=== PATIENT | female | born 1980 | race Caucasian/White ===

== ENCOUNTER 2017-12-09 15:58 | Emergency (ER) | payer MEDICAID ==
[~2017-12-09] VITALS: Ht 175.3 cm; Wt 105.0 kg
[2017-12-09 16:14] VITALS: BP 134/86; PULSE 83; RESP 19; TEMP 98; O2SAT 99
[2017-12-09] MEDS ORDERED: SODIUM CHLOR 0.9% 1000 ML INJ 1,000 ML IV ONE (16:17)
[2017-12-09] MEDS ORDERED: GABA600T PO (16:19)
[2017-12-09] MEDS ORDERED: MELO15TA20 PO (16:19)
[2017-12-09] MEDS ORDERED: CYCL5TAB PO (16:19)
--- NOTE | 2017-12-09 16:26 | PD ---
HPI Chief Complaint: Anxiety Time Seen by Provider: 16:12 Travel History International Travel<30 days: No Contact w/Intl Traveler<30days: No Traveled to known affect area: No History of Present Illness HPI Patient is a 37-year-old female who comes in after an anxiety attack. She says that she has had anxiety attacks in the past, and they felt similar. She says she got stuck in an elevator today and that triggered it. She says that when the elevator doors open she did pass out and fall forward. She does say this is happened in the past as well. Currently she complains of some pressure to the back of her head and neck. She says that she has had this as well after an anxiety attack. He says she was feeling fine prior to getting stuck in the elevator. She denies chest pain, but was feeling short of breath during the anxiety attack, but this is improved now. Severity is mild to moderate. PFSH Past Medical History ?: Not Social History Tobacco Use: No Allergies-Medications (Allergen,Severity, Reaction): Coded Allergies: Penicillins (Verified Allergy, Severe, 12/09/17) azithromycin (Verified Allergy, Severe, 12/09/17) sulfamethoxazole (Verified Allergy, Severe, 12/09/17) trimethoprim (Verified Allergy, Severe, 12/09/17) amoxicillin (Verified Allergy, Intermediate, Hives, 12/09/17) Reported Meds & Prescriptions Reported Meds & Active Scripts Active Reported Flexeril (Cyclobenzaprine HCl) 5 Mg Tab 5 Mg PO TID Meloxicam 15 Mg Tab 15 Mg PO DAILY Gabapentin 600 Mg Tab 600 Mg PO TID Review of Systems Except as stated in HPI: all other systems reviewed are Neg General / Constitutional: No: Fever, Chills HENT: Positive: Headaches Cardiovascular: No: Chest Pain or Discomfort Gastrointestinal: No: Nausea, Vomiting Musculoskeletal: Positive: Pain Neurologic: Positive: Syncope, No: Weakness Physical Exam Narrative GENERAL: Awake and alert, no acute distress. SKIN: Focused skin assessment warm/dry. No wounds or signs of infection. HEAD: Atraumatic. Normocephalic. EYES: Pupils equal and round. No scleral icterus. Extraocular movements intact. ENT: Mucous membranes pink and moist. NECK: Trachea midline. No JVD. No cervical spine tenderness. CARDIOVASCULAR: Regular rate and rhythm. No murmur appreciated. RESPIRATORY: No accessory muscle use. Clear to auscultation. Breath sounds equal bilaterally. GASTROINTESTINAL: Abdomen soft, non-tender, nondistended. MUSCULOSKELETAL: No obvious deformities. No clubbing. No cyanosis. No edema. NEUROLOGICAL: Awake and alert. No obvious cranial nerve deficits. Motor grossly within normal limits. Normal speech. PSYCHIATRIC: Appropriate mood and affect; insight and judgment normal. Data Data Last Documented VS Vital Signs Date Time Temp Pulse Resp B/P (MAP) Pulse Ox O2 Delivery O2 Flow Rate FiO2 12/09/17 20:07 12/09/17 18:37 71 17 100 Room Air 12/09/17 16:14 98.0 Orders Orders Electrocardiogram (12/09/17 16:17) Complete Blood Count With Diff (12/09/17 16:17) Comprehensive Metabolic Panel (12/09/17 16:17) Troponin I (12/09/17 16:17) Act Partial Throm Time (Ptt) (12/09/17 16:17) Prothrombin Time / Inr (Pt) (12/09/17 16:17) Ct Brain W/O Iv Contrast(Rout) (12/09/17 16:17) Ct Cerv Spine W/O Contrast (12/09/17 16:17) Ecg Monitoring (12/09/17 16:17) Iv Access Insert/Monitor (12/09/17 16:17) Oximetry (12/09/17 16:17) Sodium Chloride 0.9% Flush (Ns Flush) (12/09/17 16:30) Sodium Chlor 0.9% 1000 Ml Inj (Ns 1000 M (12/09/17 16:17) Acetaminophen (Tylenol) (12/09/17 16:30) Cyclobenzaprine (Flexeril) (12/09/17 16:30) Ed Discharge Order (12/09/17 19:50) Labs Laboratory Tests Test 12/09/17 16:25 12/09/17 19:25 Prothrombin Time 9.9 SEC Prothromb Time International Ratio 1.0 RATIO Activated Partial Thromboplast Time 24.6 SEC Blood Urea Nitrogen 12 MG/DL Creatinine 0.75 MG/DL Random Glucose 84 MG/DL Total Protein 7.4 GM/DL Albumin 3.6 GM/DL Calcium Level 8.6 MG/DL Alkaline Phosphatase 90 U/L Aspartate Amino Transf (AST/SGOT) 36 U/L Alanine Aminotransferase (ALT/SGPT) 40 U/L Total Bilirubin 0.7 MG/DL Sodium Level 139 MEQ/L Potassium Level 4.1 MEQ/L Chloride Level 109 MEQ/L Carbon Dioxide Level 22.2 MEQ/L Anion Gap 8 MEQ/L Estimat Glomerular Filtration Rate 88 ML/MIN Troponin I LESS THAN 0.02 NG/ML White Blood Count 8.6 TH/MM3 Red Blood Count 3.76 MIL/MM3 Hemoglobin 10.8 GM/DL Hematocrit 31.6 % Mean Corpuscular Volume 84.2 FL Mean Corpuscular Hemoglobin 28.7 PG Mean Corpuscular Hemoglobin Concent 34.1 % Red Cell Distribution Width 13.6 % Platelet Count 129 TH/MM3 Mean Platelet Volume 8.3 FL Neutrophils (%) (Auto) 61.5 % Lymphocytes (%) (Auto) 31.5 % Monocytes (%) (Auto) 5.1 % Eosinophils (%) (Auto) 1.6 % Basophils (%) (Auto) 0.3 % Neutrophils # (Auto) 4.8 TH/MM3 Lymphocytes # (Auto) 2.4 TH/MM3 Monocytes # (Auto) 0.4 TH/MM3 Eosinophils # (Auto) 0.1 TH/MM3 Basophils # (Auto) 0.0 TH/MM3 CBC Comment DIFF FINAL Differential Comment MDM Medical Decision Making Medical Screen Exam Complete: Yes Emergency Medical Condition: Yes Interpretation(s) ECG shows normal sinus rhythm at 77, no ST elevation or depression, normal intervals Differential Diagnosis Panic attack versus electrolyte abnormality versus syncope Narrative Course Patient is a 37-year-old female who comes in after she says she had a panic attack causing her to syncopize. Exam shows no neurologic abnormalities. IV established, labs sent. CT head and C-spine ordered. Given Tylenol and Flexeril. Patient signed out to Dr. Bustillos to follow-up testing and disposition the patient. Diagnosis Primary Impression: Anxiety Additional Impression: Syncope Araceli Aceves MD Dec 09, 2017 16:26
[2017-12-09] MEDS ORDERED: CYCLOBENZAPRINE HCL 10 MG TAB PO ONE (16:30)
[2017-12-09] MEDS ORDERED: SODIUM CHLORIDE 0.9% FLUSH 10 ML FLUSH IVF PRN (16:30)
[2017-12-09] MEDS ORDERED: ACETAMINOPHEN 325 MG TAB PO ONE (16:30)
[2017-12-09 16:31] VITALS: O2SAT 99
--- NOTE | 2017-12-09 16:44 | RADRPT ---
EXAM DATE/TIME: 12/09/2017 16:34 [facility] COMPARISON: No previous studies available for comparison. INDICATIONS : Syncopal episode. RADIATION DOSE: 50.38 CTDIvol (mGy) MEDICAL HISTORY : None SURGICAL HISTORY : None. ENCOUNTER: Initial ACUITY: 1 day PAIN SCALE: 0/10 LOCATION: cranial TECHNIQUE: Multiple contiguous axial images were obtained of the head. Using automated exposure control and adj ustment of the mA and/or kV according to patient size, radiation dose was kept as low as reasonably a chievable to obtain optimal diagnostic quality images. DICOM format image data is available electro nically for review and comparison. FINDINGS: CEREBRUM: The ventricles are normal for age. No evidence of midline shift, mass lesion, hemorrhage or acute in farction. No extra-axial fluid collections are seen. POSTERIOR FOSSA: The cerebellum and brainstem are intact. The 4th ventricle is midline. The cerebellopontine angle i s unremarkable. EXTRACRANIAL: The visualized portion of the orbits is intact. SKULL: The calvaria is intact. No evidence of skull fracture. CONCLUSION: 1. No acute findings in the brain. Lawrence Wilkerson MD on December 09, 2017 at 16:41 Board Certified Radiologist. This report was verified electronically.
--- NOTE | 2017-12-09 16:56 | RADRPT ---
EXAM DATE/TIME: 12/09/2017 16:34 [facility] COMPARISON: No previous studies available for comparison. INDICATIONS : Syncopal episode. RADIATION DOSE: 40.99 CTDIvol (mGy) MEDICAL HISTORY : None SURGICAL HISTORY : None. ENCOUNTER: Initial ACUITY: 1 day PAIN SCALE: 0/10 LOCATION: neck TECHNIQUE: Volumetric scanning of the cervical spine was performed. Multiplanar reconstructions in the sagittal, coronal and oblique axial planes were performed. Using automated exposure control and adjustment o f the mA and/or kV according to patient size, radiation dose was kept as low as reasonably achievable to obtain optimal diagnostic quality images. DICOM format image data is available electronically f or review and comparison. FINDINGS: VERTEBRAE: Normal vertebral body height. ALIGNMENT: No evidence of subluxation. C2-C3: The bony spinal canal is normal in size. No evidence of disc bulge or herniation. The neural forami na are bilaterally patent. C3-C4: The bony spinal canal is normal in size. No evidence of disc bulge or herniation. The neural forami na are bilaterally patent. C4-C5: The bony spinal canal is normal in size. No evidence of disc bulge or herniation. The neural forami na are bilaterally patent. C5-C6: The bony spinal canal is normal in size. No evidence of disc bulge or herniation. The neural forami na are bilaterally patent. C6-C7: The bony spinal canal is normal in size. No evidence of disc bulge or herniation. The neural forami na are bilaterally patent. C7-T1: The bony spinal canal is normal in size. No evidence of disc bulge or herniation. The neural forami na are bilaterally patent. CONCLUSION: 1. No acute bony abnormality identified. Josiah Kamara MD on December 09, 2017 at 16:52 Board Certified Radiologist. This report was verified electronically.
[2017-12-09 17:01] LABS: PROTHROMBIN TIME - PATIENT 9.9 SEC (9.8-11.6)
[2017-12-09 17:29] LABS: ALT (GPT) 40 U/L (10-53)
[2017-12-09 17:33] LABS: ALKALINE PHOSPHATASE 90 U/L (45-117); TOTAL BILIRUBIN ADULT 0.7 MG/DL (0.2-1.0); TOTAL PROTEIN 7.4 GM/DL (6.4-8.2); TROPONIN I LESS THAN 0.02 NG/ML (0.02-0.05)
[2017-12-09 17:35] LABS: ALBUMIN 3.6 GM/DL (3.4-5.0); AST (GOT) 36 U/L (15-37); BICARBONATE 22.2 MEQ/L (21.0-32.0); BLOOD UREA NITROGEN 12 MG/DL (7-18); CALCIUM 8.6 MG/DL (8.5-10.1); CHLORIDE 109 MEQ/L (98-107); CREATININE 0.75 MG/DL (0.50-1.00); GLOMERULAR FILTRATION RATE 88 ML/MIN (>89); GLUCOSE,RANDOM 84 MG/DL (74-106); SODIUM (NA) 139 MEQ/L (136-145)
[2017-12-09 18:37] VITALS: BP 136/82; PULSE 71; RESP 17; O2SAT 100
--- NOTE | 2017-12-09 19:20 | PD ---
Physical Exam Date Seen by Provider: Dec 09, 2017 Time Seen by Provider: 19:19 Narrative 37-year-old female came to the emergency room with history of panic attack and syncope. She was seen by the previous ER physician. Signout was to follow-up on the blood test result. There was CAT scan of the head and C-spine done which was negative. So far patient has the chemistry back which is within normal limits. Awaiting for the CBC which is a recollect. Data Data Last Documented VS Vital Signs Date Time Temp Pulse Resp B/P (MAP) Pulse Ox O2 Delivery O2 Flow Rate FiO2 12/09/17 20:07 12/09/17 18:37 71 17 100 Room Air 12/09/17 16:14 98.0 Orders Orders Electrocardiogram (12/09/17 16:17) Complete Blood Count With Diff (12/09/17 16:17) Comprehensive Metabolic Panel (12/09/17 16:17) Troponin I (12/09/17 16:17) Act Partial Throm Time (Ptt) (12/09/17 16:17) Prothrombin Time / Inr (Pt) (12/09/17 16:17) Ct Brain W/O Iv Contrast(Rout) (12/09/17 16:17) Ct Cerv Spine W/O Contrast (12/09/17 16:17) Ecg Monitoring (12/09/17 16:17) Iv Access Insert/Monitor (12/09/17 16:17) Oximetry (12/09/17 16:17) Sodium Chloride 0.9% Flush (Ns Flush) (12/09/17 16:30) Sodium Chlor 0.9% 1000 Ml Inj (Ns 1000 M (12/09/17 16:17) Acetaminophen (Tylenol) (12/09/17 16:30) Cyclobenzaprine (Flexeril) (12/09/17 16:30) Ed Discharge Order (12/09/17 19:50) Labs Laboratory Tests Test 12/09/17 16:25 12/09/17 19:25 Prothrombin Time 9.9 SEC Prothromb Time International Ratio 1.0 RATIO Activated Partial Thromboplast Time 24.6 SEC Blood Urea Nitrogen 12 MG/DL Creatinine 0.75 MG/DL Random Glucose 84 MG/DL Total Protein 7.4 GM/DL Albumin 3.6 GM/DL Calcium Level 8.6 MG/DL Alkaline Phosphatase 90 U/L Aspartate Amino Transf (AST/SGOT) 36 U/L Alanine Aminotransferase (ALT/SGPT) 40 U/L Total Bilirubin 0.7 MG/DL Sodium Level 139 MEQ/L Potassium Level 4.1 MEQ/L Chloride Level 109 MEQ/L Carbon Dioxide Level 22.2 MEQ/L Anion Gap 8 MEQ/L Estimat Glomerular Filtration Rate 88 ML/MIN Troponin I LESS THAN 0.02 NG/ML White Blood Count 8.6 TH/MM3 Red Blood Count 3.76 MIL/MM3 Hemoglobin 10.8 GM/DL Hematocrit 31.6 % Mean Corpuscular Volume 84.2 FL Mean Corpuscular Hemoglobin 28.7 PG Mean Corpuscular Hemoglobin Concent 34.1 % Red Cell Distribution Width 13.6 % Platelet Count 129 TH/MM3 Mean Platelet Volume 8.3 FL Neutrophils (%) (Auto) 61.5 % Lymphocytes (%) (Auto) 31.5 % Monocytes (%) (Auto) 5.1 % Eosinophils (%) (Auto) 1.6 % Basophils (%) (Auto) 0.3 % Neutrophils # (Auto) 4.8 TH/MM3 Lymphocytes # (Auto) 2.4 TH/MM3 Monocytes # (Auto) 0.4 TH/MM3 Eosinophils # (Auto) 0.1 TH/MM3 Basophils # (Auto) 0.0 TH/MM3 CBC Comment DIFF FINAL Differential Comment MDM Supervised Visit with RENAN: No Narrative Course 7:49 PM CBC has finally come back and patient is mildly anemic and some thrombocytopenia. I will discharge her home. She needs to follow-up with her primary care. Diagnosis Primary Impression: Anxiety Additional Impression: Syncope Qualified Codes: R55 - Syncope and collapse Referrals: Primary Care Physician 1 week Additional Instruction: Please return to the ER if condition worsens or any other new concerns. Otherwise follow-up with your primary care. Med/Other Pt SpecificInfo: No Change to Meds Disposition: 01 DISCHARGE HOME Condition: Stable Phill Bustillos MD Dec 09, 2017 19:20
[2017-12-09 19:44] LABS: AUTOMATED NEUTROPHIL # 4.8 TH/MM3 (1.8-7.7); BASOPHIL % 0.3 % (0.0-2.0); EOSINOPHIL # 0.1 TH/MM3 (0-0.4); EOSINOPHIL % 1.6 % (0.0-4.0); HEMATOCRIT 31.6 % (35.0-46.0); HEMOGLOBIN 10.8 GM/DL (11.6-15.3); LYMPH % 31.5 % (9.0-44.0); LYMPHOCYTE # 2.4 TH/MM3 (1.0-4.8); MEAN CELL VOLUME 84.2 FL (80.0-100.0); MEAN CORPUSCULAR HEMOGLOBIN 28.7 PG (27.0-34.0); MEAN CORPUSCULAR HGB CONC 34.1 % (32.0-36.0); MEAN PLATELET VOLUME 8.3 FL (7.0-11.0); MONO % 5.1 % (0.0-8.0); MONOCYTE # 0.4 TH/MM3 (0-0.9); NEUT % 61.5 % (16.0-70.0); RED BLOOD COUNT 3.76 MIL/MM3 (4.00-5.30); RED CELL DISTRIBUTION WIDTH 13.6 % (11.6-17.2)
[2017-12-09 19:45] LABS: PLATELET COUNT 129 TH/MM3 (150-450)
[2017-12-09 19:46] LABS: WHITE BLOOD COUNT 8.6 TH/MM3 (4.0-11.0)
--- NOTE | 2017-12-10 16:07 | EKG ---
Date Performed: 12/09/2017 Time Performed: 16:55:50 PTAGE: 37 years EKG: Sinus rhythm NORMAL ECG NO PREVIOUS TRACING DOCTOR: Cedrick Wang Interpretating Date/Time 12/10/2017 16:06:25
== END 2017-12-09 20:07 | disposition home or self-care (01) ==
LOC: NEPD 15:58
DX: F41.9 Anxiety disorder, unspecified (principal); R55 Syncope and collapse
CPT/HCPCS: 70450; 72125; 80053; 84484; 85025; 85610; 85730; 93005; 99285; J7030